=== PATIENT | female | born 1950 | race Caucasian/White ===

== ENCOUNTER 2018-11-19 10:03 | Day surgery (SDC) | payer MEDICARE, OTHER ==
[~2018-11-19] VITALS: Ht 162.6 cm; Wt 95.7 kg
[2018-11-19 10:48] VITALS: Ht 162.6 cm; Wt 95.7 kg
[2018-11-19] MEDS ORDERED: ATORVASTATIN (10:55)
[2018-11-19] MEDS ORDERED: LOSARTAN (10:55)
[2018-11-19] MEDS ORDERED: IBUPROFEN (10:55)
[2018-11-19] MEDS ORDERED: EFFEXOR (10:55)
[2018-11-19] MEDS ORDERED: PANTOPRAZOLE (10:55)
[2018-11-19] MEDS ORDERED: MELOXICAM (10:55)
[2018-11-19] MEDS ORDERED: VITAMIN D3 (10:55)
[2018-11-19] MEDS ORDERED: ASA 81 (10:55)
[2018-11-19] MEDS ORDERED: AMLODIPINE (10:55)
[2018-11-19] MEDS ORDERED: METOPROLOL (10:55)
--- NOTE | 2018-11-19 11:01 | PREAC ---
Date/Time of Note Date/Time of Note DATE: 11/19/18 TIME: 11:00 Anesthesia Eval and Record Evaluation Time Pre-Procedure Interview DATE: 11/19/18 TIME: 11:00 Age 68 Sex female NPO: 8 hrs Preoperative diagnosis REFLUX, POSITIVE OB Planned procedure EGD, COLONOSCOPY Past Medical History Past Medical History: Includes Cardio: HTN, Dyslipidemia Psych: Depression Surgery & Anesthesia Issues No known issue Meds Anticoagulation: No Beta Can within 24 hr: Yes Reported Medications [Ibuprofen] No Conflict Check 11/19/18 [Atorvastatin] No Conflict Check 11/19/18 [Effexor] No Conflict Check 11/19/18 [Amlodipine] No Conflict Check 11/19/18 [Losartan] No Conflict Check 11/19/18 [Vitamin D3] No Conflict Check 11/19/18 [Metoprolol] No Conflict Check 11/19/18 [Meloxicam] No Conflict Check 11/19/18 [Asa 81] No Conflict Check 11/19/18 [Pantoprazole] No Conflict Check 11/19/18 Meds reviewed: Yes Allergies Coded Allergies: No Known Allergy (Unverified , 11/19/18) Allergies Reviewed: Yes Labs/Studies Labs Reviewed: Reviewed by anesthesiologist test: N/A Pre-procedure Exam Airway: Adequate mouth opening, Adequate thyromental dist Mallampati: Mallampati II Teeth: Normal Lung: Normal Heart: Normal ASA Physical Status ASA physical status: 2 Emergency: None Planned Anesthetic General/MAC: MAC Planned Pain Management Parenteral pain med Pre-operative Attestations Prior to commencing anesthesia and surgery, the patient was re-evaluated, there was verification of: *The patient's identity *The results of appropriate recent lab work and preoperative vital signs *The above evaluation not changing prior to induction *Anesthetic plan, risk benefits, alternative and complications discussed with patient/family; questions answered; patient/family understands, accepts and wishes to proceed. Marquis Ortiz M.D. Nov 19, 2018 11:01
[2018-11-19] MEDS ORDERED: LIDOCAINE 100 MG SYRINGE ONE (11:02)
[2018-11-19] MEDS ORDERED: FENTAnyl 50 MCG/ML VIAL ONE (11:02)
[2018-11-19] MEDS ORDERED: PROPOFOL 40 ML ONE (11:02)
[2018-11-19 11:25] VITALS: BP 130/70; PULSE 76; RESP 16
[2018-11-19 11:26] VITALS: BP 130/70; PULSE 76; RESP 10
--- NOTE | 2018-11-19 12:25 | PAC ---
Date/Time of Note Date/Time of Note DATE: 11/19/18 TIME: 12:25 Post-Anesthesia Notes Post-Anesthesia Note Last documented vital signs Vital Signs Date Temp Pulse Resp B/P (MAP) Pulse Ox O2 O2 Flow FiO2 Time Delivery Rate 11/19/18 98.0 76 10 130/70 99 Room Air 11:26 (90) Activity: WNL Respiratory function: WNL Cardiovascular function: WNL Mental status: Baseline Pain reasonably controlled: Yes Hydration appropriate: Yes Nausea/Vomiting absent: Yes Marquis Ortiz M.D. Nov 19, 2018 12:25
[2018-11-19 12:35] VITALS: BP 132/74; PULSE 75
== END 2018-11-19 13:59 | disposition home or self-care (01) ==
LOC: GIL 10:03
PROVIDERS: ATTEND Internal Medicine Gastroenterology
DX: K92.1 Melena (principal); K64.8 Other hemorrhoids; K21.9 Gastro-esophageal reflux disease without esophagitis; I10 Essential (primary) hypertension; E78.5 Hyperlipidemia, unspecified
CPT/HCPCS: 43239; 45378; 88305; J2001; J3010